=== PATIENT | male | born 1995 | race African-American/Black ===

== ENCOUNTER 2017-03-11 06:44 | Emergency (ER) | payer SELFPAY ==
--- NOTE | 2017-03-11 07:41 | ER Document Report ---
HPI - HPI Patient complains to provider of: left sided sore throat Onset: Yesterday Onset/Duration: Gradual Pain Level: 4 Context: 22-year-old male complaining of left-sided sore throat, odynophagia, fever, body aches since yesterday. No abdominal pain or vomiting. No rash. Associated Symptoms: None Exacerbated by: Other - Swallowing Relieved by: Denies Similar symptoms previously: No Recently seen / treated by doctor: No - ROS ROS below otherwise negative: Yes Systems Reviewed and Negative: Yes All other systems reviewed and negative - DERM Skin Color: Normal Past Medical History - General Information source: Patient - Social History Smoking Status: Never Smoker Frequency of alcohol use: None Drug Abuse: None Lives with: Family Family History: Reviewed & Not Pertinent Patient has suicidal ideation: No Patient has homicidal ideation: No Pulmonary Medical History: Reports: Hx Asthma Neurological Medical History: Reports: Hx Seizures Renal/ Medical History: Denies: Hx Peritoneal Dialysis Psychiatric Medical History: Reports: Hx Anxiety, Hx Depression Surgical Hx: Negative - Immunizations Immunizations up to date: Yes Hx Diphtheria, Pertussis, Tetanus Vaccination: Yes Vertical Provider Document - CONSTITUTIONAL Agree With Documented VS: Yes Exam Limitations: No Limitations - INFECTION CONTROL TRAVEL OUTSIDE OF THE [place] IN LAST 30 DAYS: No - HEENT HEENT: Pharyngeal Exudate - Left tonsil, Pharyngeal Erythema. negative: Tympanic Membrane Red, Tympanic Membrane Bulging - NECK Neck: Supple, Lymphadenopathy-Left - Anterior - RESPIRATORY Respiratory: Breath Sounds Normal, No Respiratory Distress O2 Sat by Pulse Oximetry: 99 - CARDIOVASCULAR Cardiovascular: Regular Rate, Regular Rhythm - GI/ABDOMEN Gastrointestinal: Abdomen Soft, Abdomen Non-Tender, No Organomegaly - MUSCULOSKELETAL/EXTREMETIES Musculoskeletal/Extremeties: ROCIO MARSH - NEURO Level of Consciousness: Awake, Alert - DERM Integumentary: Warm, Dry, No Rash Course - Re-evaluation Re-evalutation: 03/11/17 18:41 rapid strept is negative - Vital Signs Vital signs: Temp Pulse Resp BP Pulse Ox 99.4 F 78 21 H 160/87 H 99 03/11/17 07:13 03/11/17 07:13 03/11/17 07:13 03/11/17 07:13 03/11/17 07:13 Discharge - Discharge Clinical Impression: Exudative tonsillitis Condition: Good Disposition: HOME, SELF-CARE Instructions: Penicillin V K ([facility]), Sore Throat ([facility]), Tonsillitis ([facility]) Additional Instructions: salt water gargles motrin for pain finish the antibiotics even if you feel better Return to the emergency room if worse Rapid strep is pending, only in 2 hours [phone] Please complete the patient satisfaction survey if you get one, and return it.. If you do not receive a survey, then you can go to the [facility] website, [email or web address] and place your comments about your very good care. Thank you very much. It was a pleasure being your medical provider today. Prescriptions: Ibuprofen [Motrin 800 mg Tablet] 800 mg PO Q8HP PRN #30 tablet PRN Reason: Penicillin V Potassium [Penicillin Vk 500 mg Tablet] 500 mg PO QID #40 tablet Forms: Return to Work Referrals: DOMINGA CUMMINS MD [[facility]] - Follow up as needed
[2017-03-11] MEDS ORDERED: IBUPROFEN 800 MG TABLET PO ONE (08:04)
[2017-03-11] MEDS ORDERED: PENICILLIN V POTASSIUM 500 MG TABLET PO ONE (08:04)
[2017-03-11 08:34] VITALS: BP 144/86
== END 2017-03-11 08:34 | disposition home or self-care (01) ==
LOC: ER 06:44
DX: J03.90 Acute tonsillitis, unspecified (principal); R13.10 Dysphagia, unspecified; R50.9 Fever, unspecified; J45.909 Unspecified asthma, uncomplicated
CPT/HCPCS: 87070; 87077; 87880; 99283

== ENCOUNTER 2018-04-06 17:40 | Emergency (ER) | payer SELFPAY ==
--- NOTE | 2018-04-06 18:23 | ER Document Report ---
HPI - HPI Pain Level: Denies Past Medical History - Social History Family History: Reviewed & Not Pertinent Pulmonary Medical History: Reports: Hx Asthma Neurological Medical History: Reports: Hx Seizures Renal/ Medical History: Denies: Hx Peritoneal Dialysis Psychiatric Medical History: Reports: Hx Anxiety, Hx Depression - Immunizations Immunizations up to date: Yes Hx Diphtheria, Pertussis, Tetanus Vaccination: Yes Vertical Provider Document - INFECTION CONTROL TRAVEL OUTSIDE OF THE [place] IN LAST 30 DAYS: No Course - Vital Signs Vital signs: Temp Pulse Resp BP Pulse Ox 99.2 F 69 14 140/77 H 97 04/06/18 17:52 04/06/18 17:52 04/06/18 17:52 04/06/18 17:52 04/06/18 17:52
--- NOTE | 2018-04-06 19:08 | ER Document Report ---
ED General - General Chief Complaint: Nausea Stated Complaint: STOMACH PAIN Time Seen by Provider: 04/06/18 18:22 TRAVEL OUTSIDE OF THE [place] IN LAST 30 DAYS: No - HPI Notes: 23-year-old male presents needing "a note to go back to work". Couple of days ago the patient apparently was out of work due to a stomach bug. Had some vomiting diarrhea now resolved, no current complaint. States worked well in the back without a work note. No other modifying factors, no other associated symptoms, no other provocative or palliative factors. - Related Data Allergies/Adverse Reactions: haloperidol [From Haldol] Allergy (Verified 04/06/18 17:42) haloperidol lactate [From Haldol] Allergy (Verified 04/06/18 17:42) Past Medical History - Social History Smoking Status: Current Every Day Smoker Frequency of alcohol use: Occasional Family History: Reviewed & Not Pertinent Patient has suicidal ideation: No Patient has homicidal ideation: No Pulmonary Medical History: Reports: Hx Asthma Neurological Medical History: Reports: Hx Seizures Renal/ Medical History: Denies: Hx Peritoneal Dialysis Psychiatric Medical History: Reports: Hx Anxiety, Hx Depression - Immunizations Immunizations up to date: Yes Hx Diphtheria, Pertussis, Tetanus Vaccination: Yes Review of Systems - Review of Systems Notes: Review of systems as in history of present illness, otherwise no significant headache, chest pain, abdominal pain. Physical Exam - Vital signs Vitals: Temp Pulse Resp BP Pulse Ox 99.2 F 69 14 140/77 H 97 04/06/18 17:52 04/06/18 17:52 04/06/18 17:52 04/06/18 17:52 04/06/18 17:52 - Notes Notes: General: Well devloped, no acute distress. HEENT: Normocephalic, atraumatic. Pupils equal round reactive to light. Mucosa moist. No JVD. Chest: No trauma, normal excursion. Respiratory: Good air exchange, normal excursion. Cardiac: Regular rhythm Abdomen: Soft, benign. Nondistended. Back: No asymmetry or gross abnormality. Motor: Grossly normal power and tone. Neurologic: Alert, nonfocal. Vascular: Well perfused Skin: No petechiae or purpura Course - Re-evaluation Re-evalutation: 04/06/18 19:36 Appearing male with no medical complaint. No given a return to work. Unrestricted. - Vital Signs Vital signs: Temp Pulse Resp BP Pulse Ox 98.0 F 71 16 135/84 H 99 04/06/18 19:24 04/06/18 19:24 04/06/18 19:24 04/06/18 19:24 04/06/18 19:24 Discharge - Discharge Clinical Impression: Normal exam Condition: Good Disposition: HOME, SELF-CARE Instructions: Normal Exam and Workup ([facility]) Forms: Return to School, Return to Work
[2018-04-06 19:24] VITALS: BP 135/84
== END 2018-04-06 19:26 | disposition home or self-care (01) ==
LOC: ER 17:40
DX: R10.9 Unspecified abdominal pain (principal); R11.2 Nausea with vomiting, unspecified; R19.7 Diarrhea, unspecified; J45.909 Unspecified asthma, uncomplicated; F17.200 Nicotine dependence, unspecified, uncomplicated; Z88.8 Allergy status to other drugs, medicaments and biological substances
CPT/HCPCS: 99284

== ENCOUNTER 2018-07-28 15:31 | Emergency (ER) | payer SELFPAY ==
[2018-07-28] MEDS ORDERED: LIDOCAINE 1%/EPINEPHRINE INJ 20 ML VIAL INJ ONE (16:40)
[2018-07-28] MEDS ORDERED: DOXYCYCLINE HYCLATE 100 MG TABLET PO ONE (16:40)
--- NOTE | 2018-07-28 16:42 | ER Document Report ---
ED Medical Screen (RME) - General Chief Complaint: Abscess Stated Complaint: LEFT LEG PAIN, SWELLING Time Seen by Provider: 07/28/18 16:35 Notes: Patient is a 23-year-old male that presents to the emergency department for chief complaint of left knee swelling, possible insect bite. Patient states that he noticed this this morning, and he went to work, is painful to walk on so he decided to come to the emergency department. ROS: Other than noted above, the 12 point review of systems was reviewed with the patient and were negative, all pertinent findings are included in the HPI. PHYSICAL EXAMINATION: Vital signs reviewed. GENERAL: Well-appearing, well-nourished and in no acute distress. HEAD: Atraumatic, normocephalic. EYES: Pupils equal round extraocular movements intact, conjunctiva are normal. ENT: Nares patent NECK: Normal range of motion CV: Heart regular rate and rhythm LUNGS: No respiratory distress Musculoskeletal: Normal range of motion, there is an area of erythema, that comes to ahead superficially, with mild fluctuance over the patella, with associated induration, consistent with abscess NEUROLOGICAL: Normal speech PSYCH: Normal mood, normal affect. MDM: Patient seen and examined for rapid initial assessment. Vital signs reviewed. A comprehensive ED assessment and evaluation of the patient, analysis of test results and completion of the medical decision making process will be conducted by additional ED providers. *Note is created using voice recognition software and may contain spelling, syntax or grammatical errors. TRAVEL OUTSIDE OF THE [place] IN LAST 30 DAYS: No - Related Data Allergies/Adverse Reactions: haloperidol [From Haldol] Allergy (Verified 07/28/18 15:32) haloperidol lactate [From Haldol] Allergy (Verified 07/28/18 15:32) Past Medical History - Social History Chew tobacco use (# tins/day): No Frequency of alcohol use: everyday Drug Abuse: Marijuana Pulmonary Medical History: Reports: Hx Asthma Neurological Medical History: Reports: Hx Seizures Renal/ Medical History: Denies: Hx Peritoneal Dialysis Psychiatric Medical History: Reports: Hx Anxiety, Hx Depression - Immunizations Immunizations up to date: Yes Hx Diphtheria, Pertussis, Tetanus Vaccination: Yes Physical Exam - Vital signs Vitals: Temp Pulse Resp BP Pulse Ox 98.5 F 88 18 149/85 H 97 07/28/18 15:34 07/28/18 15:34 07/28/18 15:34 07/28/18 15:34 07/28/18 15:34 Course - Vital Signs Vital signs: Temp Pulse Resp BP Pulse Ox 98.5 F 88 18 149/85 H 97 07/28/18 15:34 07/28/18 15:34 07/28/18 15:34 07/28/18 15:34 07/28/18 15:34
[2018-07-28] MEDS ORDERED: CEPHALEXIN 500 MG CAPSULE PO ONE (18:40)
--- NOTE | 2018-07-28 18:42 | ER Document Report ---
HPI - HPI Patient complains to provider of: Knee abscess Time Seen by Provider: 07/28/18 16:35 Onset: This morning Onset/Duration: Gradual Quality of pain: Achy Pain Level: 2 Context: Patient complains of abscess to the left knee that he noticed today. Patient denies any history of MRSA. Patient denies any fever. Associated Symptoms: Other - Infection to left knee. denies: Fever Exacerbated by: Movement Relieved by: Denies Similar symptoms previously: No Recently seen / treated by doctor: No - ROS ROS below otherwise negative: Yes Systems Reviewed and Negative: Yes All other systems reviewed and negative - CONSTITUTIONAL Constitutional: DENIES: Fever - NEURO Neurology: DENIES: Weakness - MUSCULOSKELETAL Musculoskeletal: REPORTS: Extremity pain - DERM Skin Color: Erythema Past Medical History - General Information source: Patient - Social History Smoking Status: Current Every Day Smoker Chew tobacco use (# tins/day): No Frequency of alcohol use: everyday Drug Abuse: Marijuana 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 Family History: Reviewed & Not Pertinent Patient has suicidal ideation: No Patient has homicidal ideation: No Pulmonary Medical History: Reports: Hx Asthma Neurological Medical History: Reports: Hx Seizures Renal/ Medical History: Denies: Hx Peritoneal Dialysis Psychiatric Medical History: Reports: Hx Anxiety, Hx Depression Surgical Hx: Negative - Immunizations Immunizations up to date: Yes Hx Diphtheria, Pertussis, Tetanus Vaccination: Yes Vertical Provider Document - CONSTITUTIONAL Agree With Documented VS: Yes Exam Limitations: No Limitations General Appearance: WD/WN, No Apparent Distress - INFECTION CONTROL TRAVEL OUTSIDE OF THE [place] IN LAST 30 DAYS: No - HEENT HEENT: Atraumatic, Normocephalic - NECK Neck: Normal Inspection - RESPIRATORY Respiratory: Breath Sounds Normal, No Respiratory Distress - CARDIOVASCULAR Cardiovascular: Regular Rate, Regular Rhythm Pulses: Normal: Posterior tibial - MUSCULOSKELETAL/EXTREMETIES Musculoskeletal/Extremeties: MAEW, FROM, Tender - Tenderness overlying left knee joint with what appears to be a superficial abscess. Patient with full range of motion. No concern for septic arthritis., Edema - NEURO Level of Consciousness: Awake, Alert, Appropriate Motor/Sensory: No Motor Deficit - DERM Integumentary: Warm, Dry, Abscess - Left knee Course - Vital Signs Vital signs: Temp Pulse Resp BP Pulse Ox 98.5 F 88 18 149/85 H 97 07/28/18 15:34 07/28/18 15:34 07/28/18 15:34 11/20/18 15:34 07/28/18 15:34 Procedures - Incision and Drainage Left Knee Type: Simple Anesthetic type: 1% Lidocaine w/epi Blade size: 11 I&D procedure: Chlorprep applied Incision Method: Incision made by scalpel Amount/type of drainage: Small amount of purulent drainage Discharge - Discharge Clinical Impression: Abscess of knee, left Condition: Stable Disposition: HOME, SELF-CARE Instructions: Abscess ([facility]), Cephalexin ([facility]), Post Incision and Drainage, Trimethoprim-Sulfa ([facility]) Additional Instructions: Return immediately for any new or worsening symptoms Followup with your primary care provider, call tomorrow to make a followup appointment Prescriptions: Cephalexin Monohydrate [Keflex 500 mg Capsule] 500 mg PO Q6H 7 Days capsule Doxycycline Hyclate 100 mg PO BID #20 capsule Forms: Return to Work Referrals: NICKI PHELAN FOR SURGERY ([facility]) [Provider Group] - Follow up as needed
[2018-07-28 19:43] VITALS: BP 132/71
== END 2018-07-28 19:43 | disposition home or self-care (01) ==
LOC: ER 15:31
DX: L02.416 Cutaneous abscess of left lower limb (principal); F17.200 Nicotine dependence, unspecified, uncomplicated; F12.10 Cannabis abuse, uncomplicated; J45.909 Unspecified asthma, uncomplicated
CPT/HCPCS: 99283; 10060; J3490